=== PATIENT | female | born 1975 | race Caucasian/White ===

== ENCOUNTER 2016-05-13 19:29 | Inpatient (IN) | payer OTHER ==
--- NOTE | ~2016-05-13 | PN ---
Unit #: [id number] #: [id number] Patient: MARCO A SANDOVAL [id number] [facility] [address] [place] [address] [id number] I MR#: [id number] NAME: MARCO A SANDOVAL ROOM: P202 Age: 41 Sex: F Admission Date: 05/13/2016 : 1975 Attending Physician: Anthony Nguyen M.D. Admitting Physician: Anthony Nguyen M.D. Primary Care Physician: Vangie Randall PROGRESS NOTES DATE OF SERVICE: 05/16/2016 SUBJECTIVE Ms. Sandoval is a 41-year-old white female who was seen today and chart was reviewed, and case was discussed with the staff. She has been anxious, withdrawn, though has not shown any agitation or irritability. Meanwhile, she has been cooperative with treatment recommendations and has been taking the medications and tolerating them fairly well. MENTAL STATUS EXAMINATION Middle-aged white female who was casually dressed with a fair personal hygiene and appears to be in no acute distress or discomfort. She was awake and alert with impaired attention and orientation. Her mood was anxious with a congruent affect. She denies any suicidal or homicidal ideations. Her insight and judgment remain slightly impaired. TREATMENT PLAN 1. We will continue on her current medications and treatment protocol. We will monitor her response to medication and make further adjustments as needed. 2. We will continue to follow up. Dictated by... Vangie Calix/avery TD: 05/18/2016 07:04 JOB #: [id number] MÓNICA PROGRESS NOTES Page 1 of 1 X Anthony Nguyen MD X PROGRESS NOTE
--- NOTE | ~2016-05-13 | PN ---
Unit #: [id number] #: [id number] Patient: MARCO A MCGUIRE [id number] [facility] [address] [place] [address] [id number] I MR#: [id number] NAME: MARCO A MCGUIRE ROOM: P202 Age: 41 Sex: F Admission Date: 05/13/2016 : 1975 Attending Physician: Anthony Nguyen M.D. Admitting Physician: Anthony Nguyen M.D. Primary Care Physician: Vangie Randall PROGRESS NOTES DATE OF SERVICE: 05/15/2016 SUBJECTIVE Ms. Mcguire is a 41-year-old white female, who was seen today and chart was reviewed and the case was discussed with the staff. She has been anxious, withdrawn, and seclusive to herself and appears to be in some distress and discomfort as she was detoxing. Meanwhile, she has been cooperative with the treatment recommendations and has been taking the medications and tolerating them fairly well, though she states that she has not been able to sleep at night and she would like to be prescribed Seroquel as she was on that medication before she came to the hospital. MENTAL STATUS EXAMINATION Middle-aged white female, who was casually dressed with a fair personal hygiene and appears to be in slight distress and discomfort. She was awake and alert with intact orientation. Her mood was anxious with a congruent affect. She denies any suicidal or homicidal ideations and also denies any auditory or visual hallucinations. Her insight and judgment remain slightly impaired. TREATMENT PLAN 1. We will continue her on her current medications and treatment protocol and we will start her on Seroquel 100 mg at bedtime. 2. We will continue to follow up. Dictated by... Anthony Nguyen M.D. IAA/modl TD: 05/15/2016 18:56 JOB #: [id number] Unit #: [id number] #: [id number] Patient: MARCO A MCGUIRE PROGRESS NOTES Page 1 of 1 X Anthony Nguyen MD X PROGRESS NOTE
--- NOTE | ~2016-05-13 | HP ---
Unit #: [id number] #: [id number] Patient: MARGARITA SANDOVAL [id number] [place] [address] [id number] I MR#: [id number] NAME: MARGARITA SANDOVAL. ROOM: P202 Age: 41 Sex: F Admission Date: 05/13/2016 : 1975 Attending Physician: Anthony Nguyen M.D. Admitting Physician: Anthony Nguyen M.D. Primary Care Physician: Mal Bailey M.D. HISTORY AND PHYSICAL HISTORY OF PRESENT ILLNESS Margarita is a 41 year old admitted to [address] [place] [address] because of her continued drug use. PAST MEDICAL HISTORY 1. Long history of polysubstance abuse to include IV heroin. 2. History of goiter. 3. Hypothyroidism. She is noncompliant with her medication. 4. Seizure disorder. PAST SURGICAL HISTORY 1. Appendectomy. 2. Tubal ligation. ALLERGIES No known drug allergies. SOCIAL HISTORY Smokes 1 pack per day. Denies alcohol. Admits to a long history of opioid abuse to include IV heroin. FAMILY HISTORY Medically noncontributory. REVIEW OF SYSTEMS CONSTITUTIONAL: No fever or chills. HEENT: Denies any sore throat, ear pain or runny nose. CARDIOVASCULAR: Denies chest pain, irregular heart rhythm or palpitations. CHEST: Denies shortness of breath or cough. No hemoptysis. GASTROINTESTINAL: Denies nausea, vomiting, diarrhea or chronic constipation. ENDOCRINE: Denies history of increased thirst or urination. No recent significant weight loss or gain. GENITOURINARY: Denies dysuria, frequency, or hematuria. SKIN: Denies any rashes. HEMATOLOGIC: Denies history of increased bleeding or bruising. MUSCULOSKELETAL: Denies any hot, swollen joints. No generalized muscle pain. NEUROLOGIC: Denies problems with vision or speech. No frequent, severe headaches. No numbness, tingling or weakness in any extremities. Denies loss of bladder or bowel control. CURRENT MEDICATIONS Unit #: [id number] #: [id number] Patient: MARGARITA SANDOVAL Detox protocol. PHYSICAL EXAMINATION GENERAL: Alert, well-nourished, in no apparent distress. VITAL SIGNS: Blood pressure 100/60, heart rate 80, respirations 16, temperature 98.6. WEIGHT: 145. HEIGHT: 5 feet 7 inches. SKIN: Warm and dry without rash or lesion. HEENT: Normocephalic. TMs not viewed. Oral and nasal passages clear. Conjunctivae clear. PERRLA. EOMs intact. NECK: Supple without lymphadenopathy or thyromegaly. HEART: Regular rate and rhythm without murmur. LUNGS: Clear. ABDOMEN: Soft, nontender. : Not done. EXTREMITIES: No evidence of cyanosis, clubbing or edema. Moves all without focal deficit. NEUROLOGICAL: Grossly within normal limits. Cranial Nerves: II: Visual benson are intact. III, IV AND : Extraocular movements are intact. Pupils are equal, round and reactive to light. V: Facial sensation is grossly normal. VII: Facial movements and expression are normal. VIII: Auditory acuity grossly intact. IX, X: Uvula is midline. Phonation is normal. XI: Patient shrugs shoulders and turns head normally. XII: Tongue protrudes in the midline. Sensory and Motor Function: Sensory and motor sensation is grossly normal. Motor: moves all extremities well. Coordination: Gait is normal. Deep Tendon Reflexes: Intact. IMPRESSION Psychiatric admission. RECOMMENDATIONS PSYCHIATRIC: Per psychiatrist. MEDICAL: See no contraindications to participate in facility's activities. MEDICAL PROGNOSIS Good. MEDICAL CONDITION Stable. Dictated by... Alissa Belcher PAidanAAidan-Sridhar. for Vangie Tolliver/xiomara TD: 05/14/2016 15:14 JOB #: [id number] Unit #: [id number] #: [id number] Patient: MARGARITA SANDOVAL HISTORY AND PHYSICAL Page 1 of 1 X Alissa Belcher HISTORY AND PHYSICAL
--- NOTE | ~2016-05-13 | PA ---
Unit #: [id number] #: [id number] Patient: MARCO A MCGUIRE [id number] [facility] [address] [place] [address] [id number] I MR#: [id number] NAME: MARCO A MCGUIRE ROOM: P202 Age: 41 Sex: F Admission Date: 05/13/2016 : 1975 Date of Assessment: Attending Physician: Anthony Nguyen M.D. Admitting Physician: Anthony Nguyen M.D. Primary Care Physician: Mal Bailey M.D. PSYCHIATRIC ASSESSMENT DATE OF SERVICE 05/14/2016. IDENTIFYING DATA Ms. Mcguire is a 41-year-old single white female, who is a resident of [place], [place] and was self-referred to the hospital on a voluntary basis. CHIEF COMPLAINT "I destroyed my life. I've stolen everything I can from my family." HISTORY OF PRESENT ILLNESS Ms. Mcguire is a 41-year-old white female, who was self-referred to the hospital. Upon presentation, reports increasing remorse and guilt for her actions and behavior stating that she feels that she has destroyed everything that she had stolen everything from her family. "I've done so much dope." The patient stated that she is focused on getting more dope and that she has worries about. She will end up if she were to get sick and does report increasing depression, anxiety, irritability, restlessness, and that she has been 3 weeks since that she had last seizure and she is unsure as to the cause of the seizures and endorses feeling tired all the time and reports feeling hopelessness and helplessness and if she does not have any dope, she cannot get out of the bed and she stated that she has been bathed twice in the past 2 weeks and the patient did take a shower today and does report feelings of hopelessness and helplessness, but denies any suicidal ideations, intent, or plan. SUBSTANCE ABUSE HISTORY The patient has extensive history of substance abuse and dependence including alcohol, cannabis, cocaine, acid, opioids, amphetamines, and benzodiazepines, and currently it appears that opioids has been her drug of choice. The patient reports that she is using up to 2.5 g of heroin on daily basis. PAST PSYCHIATRIC HISTORY The patient has a history of multiple inpatient chemical dependency treatments at [facility] in addition to being at [facility] and [facility] and review of the medical records indicate that she is currently on a combination of Remeron and Neurontin though it is not clear if she has been compliant with medications. PAST MEDICAL HISTORY Unit #: [id number] #: [id number] Patient: MARCO A MCGUIRE Hypothyroidism, seizure disorder. ALLERGIES Tylenol, tramadol, Zofran, oxycodone, Darvocet. PERSONAL AND SOCIAL HISTORY A 41-year-old white female, who reports that she is single, unemployed, and essentially homeless and has poor social support system. MENTAL STATUS EXAMINATION Middle-aged white female, who was casually dressed with fair personal hygiene, appears to be in no acute distress or discomfort. She was awake and alert on interaction with intact orientation to time, place, and person. Her mood was anxious and depressed with a congruent affect. Her speech was slow and restricted in content. Her thought processes were disorganized with some looseness of associations and flight of ideas. She denies any suicidal or homicidal ideations, and also denies any auditory or visual hallucinations. Her insight and judgment remain significantly impaired. DIAGNOSTIC IMPRESSION Psychiatric: Opioid dependence, moderate and acute withdrawals; opioid-induced mood disorder. Medical: Hypothyroidism, seizure disorder. Stressors: Moderate psychosocial stressors. TREATMENT PLAN 1. The patient has presented with history of mood disorder and substance abuse and has been decompensating and will need inpatient hospitalization for detoxification, safety, and stabilization. We will start her on detox protocol. We will closely monitor for any worsening withdrawal symptoms. 2. Supportive therapy was provided to the patient. 3. Safe, structured, and nourishing environment will be provided. ESTIMATED LENGTH OF STAY 4 to 5 days. ABILITY TO HELP SELF Limited. WILLINGNESS TO HELP SELF The patient appears to be willing to help self. STRENGTHS 1. Communicative. 2. Cooperative. PROBLEMS 1. Chronic dysphoric symptoms. 2. Chronic chemical dependency. 3. Poor social support system. DISCHARGE CRITERIA This will be contingent upon the patient's ability to go through detox without having any significant withdrawal symptoms as well as her ability to stay safe to herself, particularly after discharge from the hospital. Dictated by... Unit #: [id number] #: [id number] Patient: MCGUIREMARCO A M.D. IAA/avery TD: 05/14/2016 07:55 JOB #: [id number] PSYCHIATRIC ASSESSMENT Page 1 of 1 X Anthony Nguyen MD PSYCHIATRIC ASSESSMENT
--- NOTE | ~2016-05-13 | PN ---
Unit #: [id number] #: [id number] Patient: MARCO A SANDOVAL [id number] [facility] [address] [place] [address] [id number] I MR#: [id number] NAME: MARCO A SANDOVAL. ROOM: P202 Age: 41 Sex: F Admission Date: 05/13/2016 : 1975 Attending Physician: Anthony Nguyen M.D. Admitting Physician: Anthony Nguyen M.D. Primary Care Physician: Vangie Randall PROGRESS NOTES DATE 05/17/2016 DISCUSSION Ms. Sandoval is a 41-year-old white female who was seen today and chart was reviewed and case was discussed with the staff. She has been anxious, withdrawn though has not shown any agitation, and has been calm and cooperative with treatment recommendations and has been taking medications and tolerating them fairly well with no reported side effects. MENTAL STATUS EXAMINATION Middle-aged white female who was casually dressed with fair personal hygiene, appears to be in no acute distress or discomfort. She was awake and alert on interaction with intact orientation. Her mood was anxious with congruent affect. Her speech was slow and goal-directed. She denies any suicidal or homicidal ideations. Also, denies any auditory or visual hallucinations. Her insight and judgement remains slightly impaired. TREATMENT PLAN 1. We will continue her on her current medications and treatment protocol. We will monitor her response to the medications and make further adjustments as needed. 2. We will continue to follow up. Dictated by... Vangie Calix/kalyani TD: 05/19/2016 05:20 JOB #: [id number] Unit #: [id number] #: [id number] Patient: MARCO A SANDOVAL PROGRESS NOTES Page 1 of 1 X Anthony Nguyen MD PROGRESS NOTE
--- NOTE | ~2016-05-13 | DS ---
Unit #: [id number] #: [id number] Patient: MARCO A SANDOVAL [id number] [facility] [place] [address] [id number] I MR#: [id number] NAME: MARCO A SANDOVAL ROOM: P202 Age: 41 Sex: F Admission Date: 05/13/2016 : 1975 Discharge Date: Attending Physician: Anthony Nguyen M.D. Primary Care Physician: Mal Bailey M.D. DISCHARGE SUMMARY IDENTIFYING DATA Ms. Sandoval is a 41-year-old single white female, who is a resident of [place], [place], and was self-referred to the hospital on a voluntary basis. DISCHARGE DIAGNOSES Psychiatric: Opioid dependence, moderate and acute withdrawals; opioid-induced mood disorder. Medical: Hypothyroidism. Stressors: Moderate psychosocial stressors. HISTORY OF PRESENT ILLNESS Please see initial psychiatric evaluation for details. PAST PSYCHIATRIC HISTORY Please see initial psychiatric evaluation for details. PAST MEDICAL HISTORY Please see initial psychiatric evaluation for details. HOSPITAL COURSE The patient was admitted to the adult chemical dependency and psychiatric unit at [facility] and was oriented to the hospital environment. Routine p.r.n. medications were initiated, and she was started back on her home medications and opioid detox protocol was initiated as well and she was also started back on Remeron and Seroquel was later added as a mood stabilizer and she was closely monitored. She was taking the medications regularly and was tolerating them fairly well and was able to show a decent and therapeutic response and as such, it was decided that she will be discharged home and will continue treatment on an outpatient basis. DISCHARGE MEDICATIONS Remeron 15 mg at bedtime for depression and Seroquel 100 mg at bedtime for depression. DISCHARGE CONDITION Stable. PROGNOSIS Fair. Dictated by... Anthony Nguyen M.D. Unit #: [id number] #: [id number] Patient: MARCO A SANDOVAL IAA/modl TD: 05/18/2016 07:04 JOB #: [id number] DISCHARGE SUMMARY Page 1 of 1 X Anthony Nguyen MD X DISCHARGE SUMMARY
[~2016-05-13 19:29] MED LIST: CIPRO PO; KEPPRA250 MG; LEVOTHYROXINE100 MC1 PO; NEURONTIN800 MG PO; PAXIL PO; PYRIDIUM PO; REMERON PO; SYNTHROID PO; VICODIN 5/500 T1 TAB PO
[2016-05-14 09:24] LABS: BASOPHIL# 0.1 X10e3 (0-0.3); BASOPHIL% 1.1 % (0-2.5); EOSINOPHIL# 0.4 X10e3 (0-0.7); EOSINOPHIL% 6.2 % (0.0-7.0); HEMATOCRIT 36.6 % (35.0-45.0); HEMOGLOBIN 11.7 gm/dL (12.0-16.0); LYMPHOCYTE# 1.6 X10e3 (1.0-3.5); LYMPHOCYTE% 25.8 % (17.0-45.0); MEAN CELL VOLUME 88.2 FL (83-96); MEAN CORPUSCULAR HEMOGLOBIN 28.1 PG (28-34); MEAN CORPUSCULAR HGB CONC 31.8 g/dL (30-36); MEAN PLATELET VOLUME 8.2 FL (6.5-11.5); MONOCYTE# 0.4 X10e3 (0-1.0); MONOCYTE% 7.2 % (3.0-12.0); NEUTROPHIL# 3.6 X10e3 (1.5-7.1); NEUTROPHIL% 59.7 % (40-75); PLATELET COUNT 225 X10e3 (140-420); RED BLOOD COUNT 4.15 X10e (3.90-5.30); RED CELL DISTRIBUTION WIDTH 14.4 % (11.0-15.5)
[2016-05-14 09:28] LABS: DIFF IND NO
[2016-05-14 09:45] LABS: URINE APPEARANCE TURBID; URINE BILIRUBIN NEG (NEG); URINE BLOOD TRACE (NEG); URINE COLOR DK YELLOW; URINE GLUCOSE NEG (NEG); URINE KETONE NEG (NEG); URINE LEUKOCYTE ESTERASE NEG (NEG); URINE NITRATE NEG (NEG); URINE PH 5.5 (5-8); URINE PROTEIN TRACE (NEG); URINE SPECIFIC GRAVITY 1.032 (1.003-1.035)
[2016-05-14 09:48] LABS: URINE BACTERIA AUWI NEG (NEGATIVE); URINE SQUAMOUS EPITHELIAL CELL FEW /[HPF]
[2016-05-14 10:12] LABS: URINE AMORPHOUS SEDIMENT AMORP URATES; URINE CRYSTALS CALCIUM OXALATE /[HPF]; URINE MUCUS PRESENT; UWBCS1 AUWI 0-2 (0-5)
[2016-05-14 10:28] LABS: ALBUMIN SERUM 3.9 g/dL (3.5-5.0); BILIRUBIN,TOTAL 0.6 mg/dL (0.2-2.0); BUN/CREATININE RATIO 33.33; CALCIUM SERUM 9.1 mg/dL (8.4-10.2); CREATININE SERUM 0.6 mg/dL (0.6-1.4); GLOM FILT RATE Estimated 113.2 mL/min (>60); POTASSIUM 3.8 mmol/L (3.5-5.1); PROTEIN TOTAL SERUM 6.5 g/dL (6.0-8.3)
[2016-05-14 10:52] LABS: AMPHETAMINE NEG (NEG); BARBITURATES NEG (NEG); BENZODIAZEPINES NEG (NEG); COCAINE POS (NEG); MARIJUANA NEG (NEG); OPIATES POS (NEG); TRICYCLIC ANTIDEPRESSANTS NEG (NEG); U METHADONE NEG (NEG)
[2016-05-14 13:49] LABS: THYROID STIMULATING HORMONE 25.03 uIU/ml (0.34-5.60)
[2016-05-14 14:00] LABS: FREE THYROXIN (T4) 0.54 ng/dL (0.58-1.64)
== END 2016-05-18 10:21 | disposition home or self-care (01) | DRG 897 ==
LOC: P2S 19:29
PROVIDERS: Psychiatry & Neurology Psychiatry
PROC: HZ2ZZZZ Detoxification Services for Substance Abuse Treatment (ICD-10-PCS; principal; 2016-05-13)
DX: F11.23 Opioid dependence with withdrawal (principal); F11.24 Opioid dependence with opioid-induced mood disorder; E03.9 Hypothyroidism, unspecified; G40.909 Epilepsy, unspecified, not intractable, without status epilepticus; F17.200 Nicotine dependence, unspecified, uncomplicated
CPT/HCPCS: 80053; 80307; 81003; 84439; 84443; 84703; 85025; 86592; J2550